=== PATIENT | female | born 1995 | race Caucasian/White ===

== ENCOUNTER 2019-07-10 19:11 | Emergency (ER) | payer OTHER ==
[~2019-07-10] VITALS: Ht 165.1 cm; Wt 63.6 kg
[2019-07-10 19:17] VITALS: BP 142/84; TEMP 98.7
[2019-07-10] MEDS ORDERED: NORFLEX 10100 MG/TAB PO ×2 (19:27→19:28)
[2019-07-10] MEDS ORDERED: EC-NAPROSYN500 MG PO (19:27)
[2019-07-10] MEDS ORDERED: GLUCOPHAGE500 MG/TAB PO (19:29)
[2019-07-10] MEDS ORDERED: ALDACTONE 100M100 MG PO (19:30)
[2019-07-10] MEDS ORDERED: TESTIM1% (19:30)
[2019-07-10] MEDS ORDERED: ARMOUR THYROID300 MG PO (19:31)
[2019-07-10] MEDS ORDERED: NEURONTIN300 MG/CAP PO (20:41)
[2019-07-10 21:32] VITALS: PULSE 90
== END 2019-07-10 21:32 | disposition home or self-care (01) ==
LOC: COL.ER 19:11
DX: M54.5 Low back pain (principal); E03.9 Hypothyroidism, unspecified
CPT/HCPCS: J2270

== ENCOUNTER 2020-01-31 17:46 | Emergency (ER) | payer OTHER ==
[~2020-01-31] VITALS: Ht 165.1 cm; Wt 63.6 kg
[~2020-01-31 17:46] MED LIST: ALDACTONE 100M100 MG PO; ARMOUR THYROID300 MG PO; EC-NAPROSYN500 MG PO; GLUCOPHAGE500 MG/TAB PO; NEURONTIN300 MG/CAP PO; NORFLEX 10100 MG/TAB PO; TESTIM1%
[2020-01-31 18:07] VITALS: TEMP 98.2
[2020-01-31 19:11] LABS: BASO # 0.1 (0.0-0.2); BASO % 0.5 % (0.0-2.0); EOS # 0.1 (0.0-0.7); EOS % 0.7 % (0-4.0); GRAN # 4.9 (1.4-6.5); GRAN % 52.9 % (42.2-75.2); HEMATOCRIT 46.9 % (37.0-47.0); HEMOGLOBIN 15.3 g/dl (12.5-16.0); LYMPH # 3.6 (1.2-3.4); LYMPH % 38.8 % (20.0-51.0); MEAN CELL VOLUME 76 fl (80.0-100.0); MEAN CORPUSCULAR HEMOGLOBIN 25 pg (27.0-31.0); MEAN CORPUSCULAR HGB CONC 33 g/dl (33.0-37.0); MEAN PLATELET VOLUME 9.5 fl (7.4-10.4); MONO # 0.6 (0.1-0.6); MONO % 6.8 % (1.7-9.3); PLATELET COUNT 326 K/mm3 (130-400); RED BLOOD COUNT 6.19 M/mm3 (4.10-5.30); REDCELL DISTRIBUTION WIDTH-CV 12.7 % (11.5-14.5)
[2020-01-31 19:25] LABS: ALANINE AMINOTRANSFERASE 23 U/L (4-34); ALBUMIN 4.8 gm/dL (3.5-5.0); ALKALINE PHOSPHATASE 120 U/L (50-136); ANION GAP 10 mmol/L (7-16); AST,SGOT 28 U/L (15-37); BILIRUBIN,TOTAL 0.6 mg/dL (0.0-1.0); BLOOD UREA NITROGEN 11 mg/dL (7-17); C-REACTIVE PROTEIN < 0.5 mg/dL (0.0-0.9); CARBON DIOXIDE 25 mmol/L (22-30); CHLORIDE 101 mmol/L (98-107); GLUCOSE 88 mg/dL (74-106); MAGNESIUM 1.8 mg/dL (1.6-2.3); POTASSIUM 4.4 mmol/L (3.4-5.0); SODIUM 136 mmol/L (137-145); TOTAL PROTEIN 7.9 gm/dL (6.4-8.2)
[2020-01-31 20:13] VITALS: BP 127/80; PULSE 89
== END 2020-01-31 20:15 | disposition home or self-care (01) ==
LOC: COL.ER 17:46
PROVIDERS: Emergency Medicine
DX: R55 Syncope and collapse (principal); R25.1 Tremor, unspecified; E03.9 Hypothyroidism, unspecified; Z87.442 Personal history of urinary calculi; Z90.89 Acquired absence of other organs; Z79.84 Long term (current) use of oral hypoglycemic drugs
CPT/HCPCS: J7030